=== PATIENT | female | born 2000 | race Caucasian/White ===

== ENCOUNTER 2024-03-08 14:45 | Emergency (ER) | payer SELFPAY ==
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
[2024-03-08 14:52] VITALS: BP 118/89
--- NOTE | 2024-03-08 15:01 | EDRN ---
Pt was medically cleared by [facility] Clarke, pt is able to go crisis.
== END 2024-03-08 16:00 ==
LOC: EMR 14:45
PROVIDERS: EMERGENCY PHYSICIAN Emergency Medicine
DX: F43.21 Adjustment disorder with depressed mood (principal)
CPT/HCPCS: 99285